=== PATIENT | male | born 1950 | race Caucasian/White ===

== ENCOUNTER 2018-08-25 23:37 | Emergency (ER) | payer MEDICARE, MEDICAID ==
[~2018-08-25] VITALS: Ht 162.6 cm; Wt 69.9 kg
[~2018-08-25 23:37] MED LIST: ALBU8.5H4 IH; ENAL5TAB36 PO
--- NOTE | 2018-08-26 00:19 | NUR ---
pt bibself from home c/o upper mid abdominal cramping since earlier this afternoon. pt is c/o nausea, and constipation & being bloated; denies V/D. LBM was on the 9th scant amount. pt is a/ox3, verbal, able to make needs known. no s/s of acute distress or sob noted. waiting in bed. seen by .
--- NOTE | 2018-08-26 00:29 | NUR ---
XR being done at bedside.
--- NOTE | 2018-08-26 01:55 | NUR ---
PATIENT OFF TO CT
[2018-08-26] MEDS ORDERED: MORPHINE SULFATE INJ 2 MG/ML DISP.SYRIN IV ONE (02:00)
[2018-08-26] MEDS ORDERED: ONDANSETRON HCL/PF 4 MG/2 ML VIAL IVP ONE (02:00)
[2018-08-26] MEDS ORDERED: IV NS 0.9% 500 ML BAG IV ONE (02:00)
[2018-08-26 02:01] LABS: BASOPHILS % (AUTO) 0.3 % (0.0-2.0); HEMATOCRIT 43 % (39-51); HEMOGLOBIN 14.1 g/dL (13.5-17.5); LYMPHOCYTES # (AUTO) 1.4 /CMM (0.8-4.8); LYMPHOCYTES % (AUTO) 8.6 % (20.0-44.0); MEAN CORPUSCULAR HGB CONC 33 g/dl (31.0-36.0); MEAN CORPUSCULAR VOLUME 91 fL (80-96); MONOCYTES # (AUTO) 0.8 /CMM (0.1-1.30); NEUTROPHILS # (AUTO) 13.9 /CMM (1.8-8.9); NEUTROPHILS % (AUTO) 86.1 % (43.0-81.0); PLATELET COUNT (AUTO) 218 /CMM (150-450); RDW COEFFICIENT OF VARIATION 13.4 (11.5-15.0); RED BLOOD CELL COUNT(AUTO) 4.68 MIL/uL (4.5-6.0); WHITE BLOOD COUNT (AUTO) 16.2 K/uL (4.3-11.0)
[2018-08-26] MEDS ORDERED: ONDANSETRON HCL/PF 4 MG/2 ML VIAL ONE (02:01)
[2018-08-26] MEDS ORDERED: MORPHINE SULFATE INJ 4 MG/ML DISP.SYRIN ONE (02:01)
--- NOTE | 2018-08-26 02:04 | NUR ---
patient returned from CT
--- NOTE | 2018-08-26 02:05 | NUR ---
PATIENT REFUSED MORPHINE & ZOFRAN. WILL RETURN MED TO [facility].
[2018-08-26 02:11] LABS: INR 0.96 (0.87-1.13)
[2018-08-26 02:13] LABS: ALBUMIN 3.8 g/dL (3.4-5.0); BILIRUBIN,DIRECT 0.1 mg/dL (0.0-0.2); BILIRUBIN,TOTAL 0.5 mg/dL (0.2-1.0); CALCIUM, SERUM 8.7 mg/dL (8.5-10.1); CREATININE 0.9 mg/dL (0.6-1.3); POTASSIUM 4.2 mmol/L (3.5-5.1); TOTAL PROTEIN, SERUM 7.1 g/dL (6.4-8.2)
[2018-08-26] MEDS ORDERED: ASPI-1152 PO (02:15)
[2018-08-26] MEDS ORDERED: FENO145T35 PO (02:22)
[2018-08-26] MEDS ORDERED: TAMS0.4C34 PO (02:22)
[2018-08-26] MEDS ORDERED: ENAL10TA75 PO (02:22)
[2018-08-26] MEDS ORDERED: ALBU18HF2 IH (02:29)
[2018-08-26 03:13] LABS: APPEARANCE,URINE CLEAR (CLEAR); BILIRUBIN,URINE NEGATIVE (NEGATIVE); BLOOD, URINE NEGATIVE Ery/uL (NEGATIVE); COLOR,URINE DARK YELLO (YELLOW); KETONES,URINE NEGATIVE (NEGATIVE); LEUKOCYTE ESTERASE ,URINE NEGATIVE (NEGATIVE); NITRITE, URINE NEGATIVE (NEGATIVE); PH,URINE 5.5 (5.0-8.0); PROTEIN,URINE NEGATIVE (NEGATIVE); UGLUCOSE NEGATIVE (NEGATIVE); UROBILINOGEN,URINE 0.2 EU/dL (0.2)
--- NOTE | 2018-08-26 04:21 | NUR ---
per pt request gave copy of laboratory and imaging.
--- NOTE | 2018-08-26 04:22 | NUR ---
Patient discharged to home in stable condition. Written and verbal after care instructions given. Patient verbalizes understanding of instruction. IV access on RAC removed and secured with tape and gauze. No signs of bleeding noted. Patient left facility on foot with steady gait. [place]ift at bedside will drive pt back home. VS stable. No s/s of acute distress or sob noted.
[2018-08-26 04:25] VITALS: BP 125/72
== END 2018-08-26 04:25 | disposition home or self-care (01) ==
LOC: ER 23:42
DX: R10.33 Periumbilical pain (principal); I10 Essential (primary) hypertension; J45.909 Unspecified asthma, uncomplicated; M54.30 Sciatica, unspecified side; F10.10 Alcohol abuse, uncomplicated; Y90.9 Presence of alcohol in blood, level not specified; Z79.82 Long term (current) use of aspirin
CPT/HCPCS: 36415; 74018; 74176; 80048; 80076; 81001; 83690; 85025; 85730; 99285; A4606; J7040; 81000-TC; J2270; J2405; Z7610